=== PATIENT | female | born 1980 | race African-American/Black ===

== ENCOUNTER 2024-04-15 10:01 | Emergency (ER) | payer BC, OTHER ==
--- NOTE | 2024-04-15 10:50 | RAD REPORT ---
EXAM DESCRIPTION: Ken Single View04/15/2024 10:39 am CLINICAL HISTORY: Chest pain COMPARISON: none FINDINGS: The lungs appear clear of acute infiltrate. The heart is normal size IMPRESSION: No acute abnormalities displayed
[2024-04-15 11:21] LABS: Absolute Basophils 0.1 K/uL (0-0.5); Absolute Eosinophils 0.3 K/uL (0-0.5); Absolute Lymphocytes (CBC) 2.1 K/uL (0.7-4.9); Absolute Monocytes 0.6 K/uL (0.1-1.3); Absolute Neutrophil 4.2 K/uL (1.8-8.0); Basophils % 0.8 % (0-1.3); Eosinophils % 3.5 % (0-4.4); Hematocrit 32.9 % (36.0-45.0); Hemoglobin 10.6 g/dL (12.0-15.0); Lymphocytes % 29.4 % (15.3-44.8); MCH 27.1 pg (27.0-35.0); MCHC 32.2 g/dL (32.0-36.0); MCV 84.1 fL (80-100); MPV 7.2 fL (7.6-11.3); Monocytes % 8.4 % (3.3-12.3); Neutrophils % 57.9 % (41.7-73.7); Platelets 366 thou/uL (152-406); RBC Red Blood Cell Count 3.91 M/uL (3.86-4.86); Red Cell Distribution Width 15.1 % (12.1-15.2)
[2024-04-15 11:42] LABS: ALT/SGPT 22 U/L (13-56); AST/SGOT 15 U/L (15-37); Albumin 3.4 g/dL (3.4-5.0); Albumin/Globulin Ratio 0.9 (1.1-1.8); Alkaline Phosphatase 97 U/L (45-117); BUN Blood Urea Nitrogen 14 mg/dL (7-18); Bicarbonate 26 mEq/L (21-32); Bilirubin Direct 0.3 mg/dL (0-0.2); Bilirubin Indirect, Calculated 0.7 mg/dL (0.2-0.8); Globulin 3.9 g/dL (2.3-3.5); Glomerular Filtration Rate 107 ml/min (=/>90); Glucose Level 90 mg/dL (74-106); NT PRO-BNP 38 pg/mL (<125); Protein, Total 7.3 g/dL (6.4-8.2); Sodium Level 137 mEq/L (136-145)
[2024-04-15 11:46] LABS: Troponin High Sensitivity < 3.0 pg/mL (<58.9)
--- NOTE | 2024-04-15 14:12 | EDPHYS ---
Physician Documentation [facility] Name: Laura Robertson Age: 43 yrs Sex: Female : 1980 Arrival Date: 04/15/2024 Time: 10:01 Bed 24 Private MD: ED Physician Dickson Mantilla HPI: 04/15 13:00 This 43 yrs old Black Female presents to ER via Ambulatory with complaints of Chest rn Pain, Nausea. 13:00 The patient or guardian reports chest pain that is located primarily in the substernal rn area. Onset: just prior to arrival. The pain does not radiate. Associated signs and symptoms: Pertinent negatives: abdominal pain, cough, palpitations, shortness of breath, syncope, vomiting. The chest pain is described as a heaviness. Duration: The patient or guardian reports a single episode, that is now resolved. Modifying factors: The symptoms are alleviated by nothing. the symptoms are aggravated by nothing. Severity of pain: At its worst the pain was mild in the emergency department the pain has resolved. The patient has not experienced similar symptoms in the past. Patient driving into work today when started to have chest pain, heaviness, nonradiating. Inola fine when she woke up today. No known cardiac problems. No early cardiac disease in family. No recent trauma. Does not feel ill or have cough. Patient feels much better now and has resolved.. 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 - Infectious Disease History:: Denies. - Social history:: Smoking status: Patient denies any tobacco usage or history of. - Family history:: not pertinent. - Hospitalizations: : No recent hospitalization is reported. ROS: 13:00 Constitutional: Negative for fever, chills, and weight loss, Cardiovascular: Negative rn for palpitations, and edema, Respiratory: Negative for shortness of breath, cough, wheezing, and pleuritic chest pain, Abdomen/GI: Negative for abdominal pain, vomiting, diarrhea, and constipation, Back: Negative for injury and pain, MS/Extremity: Negative for injury and deformity, Skin: Negative for injury, rash, and discoloration, Neuro: Negative for headache, weakness, numbness, tingling, and seizure, Exam: 13:00 Constitutional: This is a well developed, well nourished patient who is awake, alert, rn and in no acute distress. Head/Face: Normocephalic, atraumatic. Cardiovascular: Regular rate and rhythm. No pulse deficits. Respiratory: No increased work of breathing, no retractions or nasal flaring. Abdomen/GI: Soft, non-tender MS/ Extremity: Pulses equal, no cyanosis Neuro: Awake and alert, GCS 15 Vital Signs: 10:15 BP 166 / 89; Pulse 85; Resp 15; Temp 97.7; Pulse Ox 99% ; Weight 86.18 kg; Height 5 ft. jl7 5 in. ; Pain 0/10; 13:05 BP 118 / 78; Pulse 69; Resp 16; Pulse Ox 99% on R/A; jb4 14:10 BP 127 / 87; Pulse 75; Resp 15; Pulse Ox 99% ; Pain 0/10; jl7 10:15 Body Mass Index 31.62 (86.18 kg, 165.1 cm) jl7 10:15 Pain Scale: Adult jl7 14:10 Pain Scale: Adult jl7 MDM: 10:17 Patient medically screened. rn 14:10 Differential diagnosis: acute myocardial infarction, acute pericarditis, anxiety, rn coronary artery disease costochondritis, esophagitis, gastritis, gastroesophageal reflux disease (GERD), pleurisy, pneumothorax, pulmonary embolus. HEART Score: History: Slightly Suspicious (0), ECG: Normal (0), Age: < or = 45 years (0), Risk Factors: No Risk Factors Known (0), Troponin: < or = 1 x Normal Limit (0), Total Score = 0. Data reviewed: vital signs, nurses notes, lab test result(s), EKG, radiologic studies, plain films, and as a result, I will discharge patient. Counseling: I had a detailed discussion with the patient and/or guardian regarding the historical points, exam findings, and any diagnostic results supporting the discharge/admit diagnosis, lab results, radiology results, the need for outpatient follow up, to return to the emergency department if symptoms worsen or persist or if there are any questions or concerns that arise at home. Response to treatment: the patient's symptoms have resolved after treatment, the patient's condition has returned to base line, and as a result, I will discharge patient. Special discussion: Based on the patient's history, exam, and Dx evaluation, there is no indication for emergent intervention or inpatient Tx. It is understood by the patient/guardian that if the Sx's persist or worsen they need to return immediately for re-evaluation. I discussed with the patient/guardian in detail that at this point there is no indication for admission to the hospital. It is understood, however, that if the symptoms persist or worsen the patient needs to return immediately for re-evaluation. ED course: Troponin negative x 2. No acute findings and workup today. I have personally reviewed all of the results, including but not limited to blood tests and imaging deemed necessary to safely discharge this patient at this time. All results given to and printed out for patient. I personally went over all the results with the patient and answered all questions. Patient will follow-up with PCP and or specialist as discussed. Return precautions given and understood.. 04/15 11:19 Order name: Basic Metabolic Panel; Complete Time: 12:32 EDND 04/15 11:19 Order name: Liver (Hepatic) Function; Complete Time: 12:32 EDND 04/15 11:19 Order name: Troponin High Sensitivity; Complete Time: 12:32 EDND 04/15 11:19 Order name: NT PRO-BNP; Complete Time: 12:32 EDND 04/15 11:19 Order name: CBC with Automated Diff; Complete Time: 11:28 [facility] 04/15 11:19 Order name: D-Dimer; Complete Time: 12:32 EDND 04/15 12:33 Order name: Troponin High Sensitivity 04/15 10:26 Order name: XRAY Chest (1 view); Complete Time: 11:28 rn 04/15 10:26 Order name: EKG; Complete Time: 10: rn 04/15 10:26 Order name: Cardiac monitoring; Complete Time: : rn 04/15 10:26 Order name: EKG - Nurse/Tech; Complete Time: :54 rn 04/15 10:26 Order name: IV Saline Lock; Complete Time: : rn 04/15 10:26 Order name: Labs collected and sent; Complete Time: : rn 04/15 10:26 Order name: O2 Per Protocol; Complete Time: 10:54 rn 04/15 10:26 Order name: O2 Sat Monitoring; Complete Time: 10:54 rn Administered Medications: No medications were administered Disposition Summary: 04/15/24 14:11 Discharge Ordered Notes: Location: Home rn Problem: new rn Symptoms: have improved rn Condition: Stable rn Diagnosis - Chest pain, unspecified rn Followup: rn - With: Davon Jessica MD - When: As needed - Reason: Recheck today's complaints, Re-evaluation by your physician Discharge Instructions: - Discharge Summary Sheet rn - Nonspecific Chest Pain, Adult rn - Pain Without a Known Cause rn Forms: - Medication Reconciliation Form rn - Antibiotic shift supervisor rn - Prescription Opioid Use rn - Patient Portal Instructions rn - Leadership Thank You Letter rn Signatures: Dispatcher [employer] Dickson Lewis MD MD rn Leal, Jahala, RN RN jl7 Corrections: (The following items were deleted from the chart) 10:28 10:26 Home Meds: None; jl7 jl7 10:28 10:26 PMHx: metformin; lucero jl7
--- NOTE | 2024-04-15 14:12 | ER ---
Nurse's Notes [facility] Name: Laura Robertson Age: 43 yrs Sex: Female : 1980 Arrival Date: 04/15/2024 Time: 10:01 Bed 24 Private MD: Diagnosis: Chest pain, unspecified Presentation: 04/15 10:15 Chief complaint: Patient states: Midsternal CP, non-radiating, constant for 1-2 hours, jl7 felt like an elephant sitting on my chest. 10:15 Coronavirus screen: At this time, the client does not indicate any symptoms associated jl7 with coronavirus-19. Ebola Screen: No symptoms or risks identified at this time. Initial Sepsis Screen: Does the patient meet any 2 criteria? No. Patient's initial sepsis screen is negative. Does the patient have a suspected source of infection? No. Patient's initial sepsis screen is negative. Risk Assessment: Do you want to hurt yourself or someone else? Patient reports no desire to harm self or others. Onset of symptoms was April 15, 2024. 10:15 Method Of Arrival: Ambulatory 7 10:15 Acuity: TINA 2 jl7 Triage Assessment: 10:26 General: Appears in no apparent distress. uncomfortable, Behavior is calm, cooperative, jl7 appropriate for age. Pain: Complains of pain in mid-sternal area Pain does not radiate. Pain currently is 0 out of 10 on a pain scale. Cardiovascular: Patient's skin is warm and dry. 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 - Infectious Disease History:: Denies. - Social history:: Smoking status: Patient denies any tobacco usage or history of. - Family history:: not pertinent. - Hospitalizations: : No recent hospitalization is reported. Screenin:58 [facility] ED Fall Risk Assessment (Adult) History of falling in the last 3 months, jb4 including since admission No falls in past 3 months (0 pts) Confusion or Disorientation No (0 pts) Intoxicated or Sedated No (0 pts) Impaired Gait No (0 pts) Mobility Assist Device Used No (0 pt) Altered Elimination No (0 pt) Score/Fall Risk Level 0 - 2 = Low Risk Oriented to surroundings, Maintained a safe environment. Abuse screen: Denies threats or abuse. Nutritional screening: No deficits noted. Tuberculosis screening: No symptoms or risk factors identified. Assessment: 11:00 General: Appears in no apparent distress. comfortable, Behavior is calm, cooperative, jb4 appropriate for age. Pain: Complains of pain in chest Pain does not radiate. Pain currently is 0 out of 10 on a pain scale. Pain began gradually. Neuro: Level of Consciousness is awake, alert, obeys commands, Oriented to person, place, time, situation. Cardiovascular: Patient's skin is warm and dry. Respiratory: Airway is patent Respiratory effort is even, unlabored, Respiratory pattern is regular, symmetrical. GI: No signs and/or symptoms were reported involving the gastrointestinal system. : No signs and/or symptoms were reported regarding the genitourinary system. EENT: No signs and/or symptoms were reported regarding the EENT system. Derm: Skin is intact, Skin is pink, warm \T\ dry. Musculoskeletal: Circulation, motion, and sensation intact. Range of motion: intact in all extremities. 12:00 Reassessment: Patient appears in no apparent distress at this time. Patient and/or jb4 family updated on plan of care and expected duration. Pain level reassessed. Patient is alert, oriented x 3, equal unlabored respirations, skin warm/dry/pink. 13:05 Reassessment: Patient appears in no apparent distress at this time. Patient and/or jb4 family updated on plan of care and expected duration. Pain level reassessed. Patient is alert, oriented x 3, equal unlabored respirations, skin warm/dry/pink. 14:08 Reassessment: Repeat troponin return, negative result, ERD notified. jl7 Vital Signs: 10:15 BP 166 / 89; Pulse 85; Resp 15; Temp 97.7; Pulse Ox 99% ; Weight 86.18 kg; Height 5 ft. jl7 5 in. ; Pain 0/10; 13:05 BP 118 / 78; Pulse 69; Resp 16; Pulse Ox 99% on R/A; jb4 14:10 BP 127 / 87; Pulse 75; Resp 15; Pulse Ox 99% ; Pain 0/10; jl7 10:15 Body Mass Index 31.62 (86.18 kg, 165.1 cm) jl7 10:15 Pain Scale: Adult jl7 14:10 Pain Scale: Adult jl7 ED Course: 10:05 Patient arrived in ED. mg5 10:10 EKG done, by ED staff, reviewed by Dickson Mantilla MD. jl7 10:17 Dickson Mantilla MD is Attending Physician. rn 10:26 Triage completed. jl7 10:26 Arm band placed on right wrist. jl7 10:40 XRAY Chest (1 view) In Process Unspecified. EDMS 11:03 No provider procedures requiring assistance completed. Initial lab(s) drawn, by hi, renny sent to lab. Inserted saline lock: 20 gauge in right wrist, using aseptic technique. Blood collected. O2 via RA. 11:58 Patient has correct armband on for positive identification. Placed in gown. Call light jb4 in reach. Side rails up X 1. Provided Education on: plan of care. Client placed on continuous cardiac and pulse oximetry monitoring. NIBP monitoring applied. tailoring teacher on. Pulse ox on. 13:05 Mj Perez, RN is Primary Nurse. jb4 14:11 Davon Jessica MD is Referral Physician. rn 14:37 IV discontinued, intact, bleeding controlled, No redness/swelling at site. Pressure jl7 dressing applied. Administered Medications: No medications were administered Medication: 11:58 VIS not applicable for this client. jb4 Outcome: 14:11 Discharge ordered by . rn 14:37 Discharged to home ambulatory, jl7 14:37 Condition: stable 14:37 Discharge instructions given to patient, Instructed on discharge instructions, follow up and referral plans. Demonstrated understanding of instructions, follow-up care, 14:37 Patient left the ED. jl7 Signatures: Dispatcher [employer] EDUT Dickson Mantilla MD MD rn Bryson, James RN EARL [email or web address] Maria Alejandra Kaminski RN RN jl7 Birgit Saucedo mg5 Corrections: (The following items were deleted from the chart) 10:28 10:26 Home Meds: None; jl7 jl7 10:28 10:26 PMHx: metformin; jlSung jl7
[2024-04-15 16:09] VITALS: BP 127/87; TEMP 97.7; O2SAT 99
--- NOTE | 2024-04-16 10:56 | EKG ---
Test Date: 2024-04-15 Test Time: 10:22:40 Shorts Sifter: RADHA MEASUREMENT RESULTS: Intervals: Rate: 74 ID: [id number] QRSD: 96 QT: 388 QTc: 430 [place]: P: 45 ID: [id number] QRS: 62 T: 85 INTERPRETIVE STATEMENTS: Normal sinus rhythm Normal ECG No previous ECG available for comparison Electronically Signed On 04-16-24 10:54:49 CDT by Kirk Tamez
--- NOTE | 2024-04-20 16:47 | EKG ---
Test Date: 2024-04-15 Test Time: 09:47:48 Traffic Circuit Engineer: SHAYNE MEASUREMENT RESULTS: Intervals: Rate: 84 [place]: 148 QRSD: 94 QT: 388 QTc: 458 [place]: P: 28 [place]: 148 QRS: 12 T: 25 INTERPRETIVE STATEMENTS: Normal sinus rhythm Normal ECG No previous ECG available for comparison Electronically Signed On 04-20-24 16:37:24 CDT by Davon Jessica
== END 2024-04-15 14:37 | disposition home or self-care (01) ==
LOC: ER 10:01
DX: R07.9 Chest pain, unspecified (principal)
CPT/HCPCS: 36415; 71045; 80048; 80076; 83880; 84484; 85025; 85379; 93005; 99285